=== PATIENT | male | born 1970 | race Caucasian/White ===

== ENCOUNTER 2019-07-16 19:23 | Observation (INO) ==
[2019-07-16] MEDS ORDERED: NS 1,000 ML IV ONE ×2 (19:54→23:10)
--- NOTE | 2019-07-16 20:00 | Diag Imaging Result Doc PS360 ---
EXAM: CHEST-1 VIEW HISTORY: SEPSIS PROTOCOL TECHNIQUE: Single view COMPARISON: None. FINDINGS: The lungs are well expanded. The heart is not enlarged. The vessels are not distended. There are no infiltrates. No effusion identified. IMPRESSION: No pneumonia. Electronically signed by Jose Simon 07/16/2019 7:57 PM
[2019-07-16 20:15] LABS: BASO# 0.04 X1000 (0.0-0.2); BASO% 0.2 % (0.0-0.8); EOS% 1.1 % (0.0-10.0); HEMATOCRIT 42.6 % (42.0-52.0); HEMOGLOBIN 14.6 g/dL (14.0-18.0); IMM GRAN# 0.08 X1000 (0.0-0.04); IMM GRAN% 0.4 % (0.0-0.5); LYMPH# 1.78 X1000 (1.2-3.4); LYMPH% 9.8 % (20.5-51.1); MCH 30.2 PG (27-31); MCHC 34.3 g/dL (33-37); MCV 88.2 FL (81-99); MONO# 1.73 X1000 (0.11-0.59); MONO% 9.5 % (1.7-9.3); MPV 9.6 FL (7.4-10.4); NEUT# 14.36 X1000 (1.4-6.5); PLT 308 X1000 (130-400); RBC 4.83 XMIL (4.7-6.1); RDW 12.2 % (11.5-14.5); WBC 18.19 X1000 (4.8-10.8)
[2019-07-16 20:40] LABS: AGAP 15; ALBUMIN 4.3 g/dL (3.5-5.0); ALKALINE PHOSPHATASE 112 U/L (32-122); BUN 9 mg/dL (8-22); CALCIUM 9.6 mg/dL (8.8-10.2); CHLORIDE 91 mmol/L (98-107); CK PROFILE 117 U/L (24-204); COSMO 275; CREATININE 0.7 mg/dL (0.7-1.2); ESTIMATED GFR > 60; GLUCOSE 384 mg/dL (70-104); GOT 22 U/L (10-34); GPT 57 U/L (10-44); POTASSIUM 4.5 mmol/L (3.5-5.1); SODIUM 130 mmol/L (136-145); TCO2 24 mmol/L (25-35); TOTAL PROTEIN 7.2 g/dL (6.3-8.3)
[2019-07-16 20:48] LABS: INR 1.03; PTT 29.5 Seconds (22.3-41.8)
[2019-07-16 21:12] LABS: URINE SOURCE CLEAN CATCH
[2019-07-16 21:45] LABS: BILIRUBIN URINE NEGATIVE (NEGATIVE); BLOOD URINE NEGATIVE (NEGATIVE); COLOR YELLOW; GLUCOSE URINE >1000 mg/dL (NEGATIVE); KETONE URINE 20 mg/dL (NEGATIVE); LEUKOCYTES URINE NEGATIVE (NEGATIVE); NITRITE URINE NEGATIVE (NEGATIVE); PROTEIN URINE 30 mg/dL (NEGATIVE); SP GRAVITY URINE 1.047; TURBIDITY URINE CLEAR (CLEAR); UROBILINOGEN URINE NORMAL (NORMAL)
[2019-07-16 21:47] LABS: UR EPITHELIAL CELLS <10 /HPF (<10); URINE BACTERIA NEGATIVE /HPF; URINE RBC <10 /HPF (<10); URINE WBC <10 /HPF (<10)
[2019-07-16] MEDS ORDERED: HUMALOG SUBQ ONE (22:00)
[2019-07-16] MEDS ORDERED: ZOSYN 3.375 GM in NS 50 ML IV ONE (22:04)
--- NOTE | 2019-07-16 22:04 | Diag Imaging Result Doc PS360 ---
EXAM: CT ABD/PELVIS W/IV CONT ONLY HISTORY: pain, distentio, elevated wbc TECHNIQUE: CT abdomen and pelvis with intravenous contrast. COMPARISON: None. FINDINGS: There is marked fatty infiltration of the liver. Normal spleen and adrenal glands. No calcified gallstones or adjacent inflammation. There is inflammation about the head of the pancreas. No pancreatic pseudocyst or pancreatic calcifications. Normal kidneys. No hydronephrosis. No aortic aneurysm. No bowel obstruction. There are scattered colonic diverticula. There is stool throughout the colon. No abscess. The urinary bladder is moderately distended and appears normal. Normal prostate. IMPRESSION: 1.Findings likely represent acute pancreatitis. Clinical and laboratory evaluation needed. 2.Prominent fatty infiltration of the liver 3.Constipation 4.Colonic diverticulosis This exam was performed using automated exposure control, adjustment of mA or kV according to patient size, and/or use of iterative reconstruction technique. Electronically signed by Jose Simon 07/16/2019 10:02 PM
[2019-07-16] MEDS ORDERED: HUMALOG (PARKWAY) ONE ×2 (22:05→23:22)
[2019-07-16 22:13] LABS: BE 1.1 mmoll (-2.0-2.0); BLOOD TYPE VENOUS; HCO3-(ACT) 25.7 mmoll (22-27); PCO2(98.6) 37 mmHg (40-60); PO2(98.6) 59 mmHg (30-55); SAMPLE BLOOD; SAO2 96.4 % (40.0-85.0); pH(98.6) 7.44 (7.32-7.43)
[2019-07-16 22:56] LABS: AMYLASE 57 U/L (20-200); LIPASE 155 U/L (13-60)
[2019-07-16] MEDS ORDERED: MORPHINE IV PRN (23:10)
[2019-07-16] MEDS ORDERED: ZOFRAN IV PRN (23:10)
--- NOTE | 2019-07-16 23:10 | PROVIDER DOCUMENTATION ---
This chart was entered by Carmen Guillen Scribe, acting as scribe for Aliya Betancourt CRNP. HPI-General Adult - General Chief Complaint: SEPSIS ALERT - P Stated Complaint: BLOOD SUGAR 400 Time Seen by Provider: 07/16/19 19:48 Source: patient Allergies/Adverse Reactions: Patient Allergies Allergy/AdvReac Type Severity Reaction Status Date / Time No Known Allergies Allergy Verified 07/16/19 21:02 Home Medications: Home Medication List Medication Instructions Recorded Confirmed Last Taken Type Metoprolol Succinate E.r. [Toprol 100 mg PO QPM 06/10/13 07/16/19 07/15/19 21:00 History Xl] [place]-3S/Dha/Epa/Fish Oil [Fish 1 each PO BID 06/10/13 07/16/19 07/16/19 09:30 History Oil 1,200 mg Softgel] PRAVAstatin [Pravachol] 40 mg PO QAM 06/10/13 07/16/19 07/16/19 09:30 History Lisinopril 20 mg PO BID 07/16/19 07/16/19 07/16/19 09:30 History - History of Present Illness -Gen Adult Nature of Presenting Problems: pt is a 49 yr old male presenting with 2 day complaint of abdominal distension and nausea, pt was seen by PCP today for same, pt had negative Xray and ultrasound today. pt reports this evening PCP called and told [place] [id number] and BGL was over 400. pt hx of T2D Location of Pain/Injury: reports: abdomen Pain Radiation: reports: no radiation Severity: reports: moderate Onset/Duration: reports: 2 days ago Timing: reports: still present Context/Activities at Onset: reports: light activity Modifying Factors: improves with: nothing Associated Symptoms: reports: constipation, nausea. denies: chest pain, diarr hea, fever/chills, shortness of breath, vomiting, weakness Similar Symptoms Previously?: Yes Recently seen or treated by another doctor?: Yes - Diabetes Related Context Context: reports: high blood sugar Review of Systems - Adult - REVIEW OF SYSTEMS - ADULT Constitutional: denies: chills, fever Eyes: reports: no symptoms reported Ears, Nose, Mouth & Throat: reports: no symptoms reported Cardiovascular: denies: chest pain, palpitations, syncope Respiratory: denies: cough, shortness of breath Gastrointestinal: reports: abdominal pain, nausea. denies: diarrhea, vomiting Genitourinary: denies: dysuria, frequency, flank pain Musculoskeletal: reports: no symptoms reported Integumentary: reports: no symptoms reported Neurological: denies: dizziness/vertigo, headache/migraines, syncope Psychiatric: reports: no symptoms reported Endocrine: reports: no symptoms reported Hematologic/Lymphatic: reports: no symptoms reported Allergic/Immunologic: reports: no symptoms reported All Other Systems: Reviewed and Negative Past History - Adult - PAST MEDICAL HISTORY-ADULT Review of Records: reports: Old Records Reviewed, Nursing Assessment Review, Medications Reviewed, Social history reviewed & non-contributory. Major Childhood Illnesses: reports: denies history Cardiovascular: reports: denies history Respiratory: reports: denies history Gastrointestinal: reports: denies history Obstetrical/Gynecological: reports: denies history Genitourinary: reports: denies history Musculoskeletal: reports: denies history Neurological: reports: denies history Endocrine/Immune: reports: denies history Other Conditions: reports: denies history - IMMUNIZATION STATUS Childhood Immunizations: See Nurse Assessment Flu Vaccine: See Nurse Assessment - FAMILY HISTORY Family History: reviewed, not pertinent - SOCIAL HISTORY Smoking: quit greater than 1 year Substance Use: alcohol Living Situation: family Physical Exam-General - PHYSICAL EXAM-ADULT Initial Vital Signs Reviewed: Yes - CONSTITUTIONAL General Appearance: alert, no apparent distress, obese - EYES Eyes: PERRL/EOMI - HEAD, EARS, NOSE, MOUTH & THROAT HENMT: normocephalic/atraumatic, moist mucous membranes, normal ENT inspection - NECK Neck: non-tender, full range of motion, supple, normal inspection - RESPIRATORY Respiratory: chest non-tender, lungs clear, normal breath sounds, no respiratory distress, no accessory muscle use - CARDIOVASCULAR Cardiovascular: normal peripheral pulses, tachycardia - GASTROINTESTINAL (ABDOMEN) Abdominal Exam: normal bowel sounds, no organomegaly, no pulsatile mass, distended, tenderness (EPIGASTRIC). negative: abdominal bruit, abnormal bowel sounds - LYMPHATIC Lymphatic: no adenopathy - MUSCULOSKELETAL Back Exam: normal inspection, no CVA tenderness, no vertebral tenderness Extremity: normal range of motion, non-tender, normal gait, normal inspection Peripheral Pulses: radial (R): 2+, radial (L): 2+ - SKIN Integumentary: normal color, normal turgor, warm/dry - NEUROLOGIC Neurologic: grossly normal, no motor/sensory deficits - PSYCHIATRIC Psych/Mental Status: normal mood/affect, normal thought content, normal thought process, oriented x 3 Progress - PLAN OF CARE/RESULTS Progress/Plan/Lab Results: Vital Signs - 8 hr 07/16/19 19:25 Temperature 98.5 F Pulse Rate 122 H Respiratory Rate 18 Blood Pressure 163/83 O2 Sat by Pulse Oximetry 95 Laboratory Results - last 24 hr 07/16/19 19:52 POC Glucose 324 H Orders Category Date Time Status Cardiac Monitoring DIRECTED Care 07/16/19 19:32 Active IV Insertion ORDERED Care 07/16/19 19:32 Active Notify MD of + Sepsis Screen NOW Care 07/16/19 19:32 Active Notify Physician As Ordered Care 07/16/19 19:32 Active CHEST-1 VIEW [RAD] Stat Exams 07/16/19 19:[address] ABD/PELVIS W/IV CONT ONLY [CT] Stat Exams 07/16/19 19:54 Ordered BLOOD CULTURE [BLDCUL] Stat Lab 07/16/19 19:32 Uncollected CBC WITH DIFF [HEME] Stat Lab 07/16/19 19:32 Uncollected CK PROFILE [SP CHEM] Stat Lab 07/16/19 19:32 Uncollected COMPREHENSIVE METABOLIC PANEL [CHEM] Stat Lab 07/16/19 19:32 Uncollected LACTATE, PLASMA [CHEM] Q3H Lab 07/16/19 19:45 Uncollected LACTATE, PLASMA [CHEM] Q3H Lab 07/16/19 22:45 Uncollected LACTATE, PLASMA [CHEM] Q3H Lab 07/17/19 01:45 Uncollected MAGNESIUM [CHEM] Stat Lab 07/16/19 19:32 Uncollected PROTIME WITH INR [COAG] Stat Lab 07/16/19 19:32 Uncollected PTT [COAG] Stat Lab 07/16/19 19:32 Uncollected TROPONIN T HIGH SENSITIVITY Stat Lab 07/16/19 19:32 Uncollected URINALYSIS W/POSS RFLX CULT [URINALYSIS] Stat Lab 07/16/19 19:32 Uncollected 0.9% Sodium Chloride Inj [Ns] 1,000 ml Med 07/16/19 19:54 Active IV 999 mls/hr Oxygen Device Stat Oth 07/16/19 19:32 Active Result Diagrams: 07/16/19 20:01 07/16/19 20:01 - XRAY 1 XRAY Study: Chest Impression: See EMR Report ( EXAM: CHEST-1 VIEW HISTORY: SEPSIS PROTOCOL TECHNIQUE: Single view COMPARISON: None. FINDINGS: The lungs are well expanded. The heart is not enlarged. The vessels are not distended. There are no infiltrates. No effusion identified. IMPRESSION: No pneumonia. Electronically signed by Jose Simon 07/16/2019 7:57 PM 07/16/191956 Interpreting Physician: Jose Simon MD Dictated Date/Time: 07/16/191956 cc: Rafat Bazan MD; Anila Roche) - CONSULTS/PCP/HOSPITALIST Notification #1 *Consult/PCP/Hospitalist*: DR. GUILLEN Time Discussed: 23:01 Consult Disposition: Admit Departure - Departure Date of Disposition Decision: 07/16/19 Time of Disposition Decision: 23:01 DIAGNOSIS: Acute pancreatitis, Constipation, Leukocytosis, Newly diagnosed diabetes Disposition: HOME 01 Certified Medical Emergency: Emergent Condition: Stable Referrals and Follow-Ups: Anila Roche CRNP [Primary Care Provider] - - Critical Care Note This patient required my direct & personal management of CC.: No Attestation - Physician/ ROGE Attestation Patient care was provided by Advanced Practice Provider:: Yes Advanced Practice Provider:: Aliya Betancourt Advanced Practice Provider documentation review:: The Mid-level provider documentation, treatment plan and medical decision making was reviewed by the physician who agrees with all treatment and medical decision making by the [facility]. The physician spent face to face time with patient:: Yes Advanced Practice Provider documentation review:: Supervising physician onsite and consulted in the evaluation and care of this patient. The physician did have a face to face encounter with the patient. This chart was documented by the indicated scribe, (Carmen Guillen Scribe) and accurately reflects the services I performed and decisions made by me, Aliya Betancourt CRNP, as attested by the provider's signature.
[2019-07-16 23:22] LABS: UR AMPHETAMINES QUAL NONE DETECTED (NONE DETECT); UR BARBITUATES QUAL NONE DETECTED (NONE DETECT); UR BENZODIAZEPIN QUAL NONE DETECTED (NONE DETECT); UR CANNABINOIDS QUAL NONE DETECTED (NONE DETECT); UR COCAINE QUAL NONE DETECTED (NONE DETECT); UR METHADONE QUAL NONE DETECTED (NONE DETECT); UR METHAMPHETAMINE QUAL NONE DETECTED (NONE DETECT); UR OPIATES QUAL NONE DETECTED (NONE DETECT); UR OXYCODONE QUAL NONE DETECTED (NONE DETECT); UR PCP QUAL NONE DETECTED (NONE DETECT); UR PROPOXYPHENE QUAL NONE DETECTED (NONE DETECT); UR TCA QUAL NONE DETECTED (NONE DETECT)
[2019-07-17 00:08] LABS: HEMOGLOBIN A1C 10.5 % (4.8-6.0)
[2019-07-17] MEDS ORDERED: APRESOLINE PO ONE (04:33)
[2019-07-17] MEDS: TYLENOL PO PRN ×3 (06:29→21:53)
[2019-07-17] MEDS: HUMALOG (PARKWAY) SUBQ SCH ×4 (06:38→21:49)
[2019-07-17 07:42] LABS: BASO# 0.04 X1000 (0.0-0.2); BASO% 0.3 % (0.0-0.8); EOS# 0.46 X1000 (0.0-0.7); HEMATOCRIT 41.8 % (42.0-52.0); IMM GRAN# 0.08 X1000 (0.0-0.04); IMM GRAN% 0.5 % (0.0-0.5); LYMPH# 1.69 X1000 (1.2-3.4); MCH 29.9 PG (27-31); MCHC 33.5 g/dL (33-37); MCV 89.1 FL (81-99); MONO# 1.36 X1000 (0.11-0.59); MONO% 8.8 % (1.7-9.3); MPV 9.4 FL (7.4-10.4); NEUT# 11.77 X1000 (1.4-6.5); NEUT% 76.4 % (42.2-75.2); PLT 280 X1000 (130-400); RBC 4.69 XMIL (4.7-6.1); RDW 12.4 % (11.5-14.5)
[2019-07-17 08:10] LABS: AGAP 13; ALBUMIN 3.6 g/dL (3.5-5.0); ALKALINE PHOSPHATASE 104 U/L (32-122); BUN 11 mg/dL (8-22); CHLORIDE 96 mmol/L (98-107); COSMO 275; CREATININE 0.7 mg/dL (0.7-1.2); ESTIMATED GFR > 60; GLUCOSE 261 mg/dL (70-104); GOT 25 U/L (10-34); GPT 43 U/L (10-44); POTASSIUM 4.6 mmol/L (3.5-5.1); SODIUM 133 mmol/L (136-145); TCO2 23 mmol/L (25-35); TOTAL PROTEIN 7.3 g/dL (6.3-8.3)
[2019-07-17] MEDS ORDERED: COLACE PO SCH (09:00)
[2019-07-17] MEDS ORDERED: APRESOLINE IV PRN (12:33)
[2019-07-17] MEDS: ZOSYN 3.375 GM in NS 50 ML IV SCH ×4 (12:53→23:11)
[2019-07-17] MEDS: PROTONIX IV SCH (12:54)
[2019-07-17] MEDS: SODIUM CHLORIDE 0.9% INJ SCH (12:54)
[2019-07-17] MEDS: NS 1,000 ML IV SCH ×2 (12:54→21:50)
[2019-07-17] MEDS: DULCOLAX PR SCH ×2 (12:55→21:50)
--- NOTE | 2019-07-17 17:40 | HISTORY AND PHYSICAL ---
CHIEF COMPLAINT: Abdominal distention and nausea x2 days. HISTORY OF PRESENT ILLNESS: This is a 49-year-old gentleman who presented to the emergency room on the instruction of his primary care physician after having x-rays and labs performed on an outpatient basis. [place] [address] and a blood sugar over 400 prompting his primary care to call him, and tell him to report to the emergency room. He stated that over the last 2 days he has had a crampy type abdominal pain that has been constant although it did increase with activity. He has had persistent nausea although he denied any vomiting. He stated he had not had a bowel movement in several days. CT of the abdomen and pelvis revealed acute pancreatitis with constipation. PAST MEDICAL HISTORY: Hypertension and hyperlipidemia. PAST SURGICAL HISTORY: Left knee surgery, tonsillectomy, and hernia repair. SOCIAL HISTORY: He smokes about a pack a day. He drinks about a half a case a week of alcohol. He denies any illicit drug use. ALLERGIES: No known drug allergies. FAMILY HISTORY: Positive for hypertension and coronary artery disease in grandparents. REVIEW OF SYSTEMS: Discussed with the patient with pertinent positives stated in the HPI. He denied any vomiting, any syncope, dizziness, chest pain, palpitations, any shortness of breath, cough, fever, chills, night sweats, recent weight loss or weight gain, any black or bloody vomitus or stools, diarrhea, hematuria or dysuria. PHYSICAL EXAMINATION: GENERAL: This is a 49-year-old gentleman who is sitting up in bed in no distress. VITAL SIGNS: Blood pressure 167/97, heart rate 70, respirations 18, and temperature is 98.2 degrees with room air saturations 96 to 98 percent. EYES: Pupils are equal, round, and react to light. EOMs are intact. Sclerae are anicteric. HEENT: Head is normocephalic, atraumatic. Mucous membranes are dry. NECK: Supple with trachea midline. CARDIOVASCULAR: Regular rate and rhythm. S1 and S2 are appreciated. Calves are nontender bilateral. PULMONARY: Breath sounds are clear with no increased work of breathing noted. Chest rises and falls symmetric with respiration. GASTROINTESTINAL: Abdomen is distended with generalized tenderness particularly in the epigastric area. Bowel sounds are heard in all 4 quadrants. GENITOURINARY: No CVA or suprapubic tenderness. NEUROLOGIC: He is alert and oriented x3. SKIN: Warm and dry. LABORATORY DATA: 1. WBC is 18 with hemoglobin 14.6, hematocrit 42.6, and platelets 308,000. Sodium is 130, potassium 4.5, BUN 9, and creatinine 0.7 with glucose ranging from 270 to 380. Hemoglobin A1c is 10.5. Lipase is 155 with amylase of 57. Urine drug screen reveals none detected. Acetone is negative. Urinalysis reveals glucose greater than 1000 with 20 ketones, otherwise negative. Blood cultures are pending. 2. Chest x-ray reveals no pneumonia. Lungs are well expanded. Heart is not enlarged. Vessels are not distended. There are no infiltrates. 3. CT of the abdomen and pelvis with IV contrast reveals findings likely represent acute pancreatitis, prominent fatty infiltration of the liver, constipation, and colonic diverticulosis. ASSESSMENT AND PLAN: 1. Acute pancreatitis. 2. Constipation. 3. Leukocytosis secondary to above. 4. New diagnosis of diabetes mellitus. 5. Hypertension. 6. Hyperlipidemia. PLAN: The patient has been admitted to the medical-surgical floor. He will remain NPO. Check pattern blood glucose with sliding scale insulin. We will continue with IV hydration, giving morphine for pain, and Zofran for nausea. Continue with antibiotic coverage of Zosyn, and any further antibiotics will be culture driven. Use hydralazine p.r.n. for blood pressure control, and once he is able to tolerate oral medications, we can restart his lisinopril and Toprol. Repeat a CBC, CMP, and lipase in the morning. Give Dulcolax suppository b.i.d. x4 doses. For GI prophylaxis, we will use Protonix. We will consult dietary for diabetes education. Further treatments pending hospital course. The patient was seen and plan was discussed with Dr. Carreon. Dictated by BERLIN Riojas for Jakob Carreon MD cc: BERLIN Riojas MD
--- NOTE | 2019-07-18 03:00 | HISTORY AND PHYSICAL ---
ADDENDUM: Patient seen and examined by myself. Full note dictated and discussed with nurse practitioner. Patient presented to the hospital with elevated blood sugars, epigastric pain and nausea. On exam, patient has an acute pancreatitis as well as leukocytosis. Blood pressures are elevated. We are going to admit to the hospital, place on sliding scale insulin, keep NPO for now due to pancreatitis and we will follow. cc: Jakob Carreon MD
[2019-07-18] MEDS: ZOSYN 3.375 GM in NS 50 ML IV SCH ×2 (05:19→12:37)
[2019-07-18 06:07] LABS: HEMATOCRIT 38.7 % (42.0-52.0); HEMOGLOBIN 13.1 g/dL (14.0-18.0); MCH 30.5 PG (27-31); MCHC 33.9 g/dL (33-37); MPV 9.6 FL (7.4-10.4); RBC 4.3 XMIL (4.7-6.1); WBC 13.31 X1000 (4.8-10.8)
[2019-07-18 06:15] LABS: AGAP 11; ALBUMIN 3.6 g/dL (3.5-5.0); ALKALINE PHOSPHATASE 93 U/L (32-122); BUN 9 mg/dL (8-22); CALCIUM 9.1 mg/dL (8.8-10.2); CHLORIDE 98 mmol/L (98-107); COSMO 276; CREATININE 0.8 mg/dL (0.7-1.2); ESTIMATED GFR > 60; GLUCOSE 228 mg/dL (70-104); GOT 17 U/L (10-34); GPT 34 U/L (10-44); LIPASE 130 U/L (13-60); POTASSIUM 4.1 mmol/L (3.5-5.1); SODIUM 135 mmol/L (136-145); TCO2 26 mmol/L (25-35); TOTAL PROTEIN 6.8 g/dL (6.3-8.3)
[2019-07-18] MEDS: HUMALOG (PARKWAY) SUBQ SCH ×2 (06:31→12:38)
[2019-07-18] MEDS: NS 1,000 ML IV SCH (07:02)
[2019-07-18] MEDS: SODIUM CHLORIDE 0.9% INJ SCH (08:38)
[2019-07-18] MEDS: PROTONIX IV SCH ×2 (08:38→12:38)
[2019-07-18] MEDS: DULCOLAX PR SCH (08:38)
[2019-07-18] MEDS: TYLENOL PO PRN (08:47)
[2019-07-18] MEDS ORDERED: PRAVACHOL PO SCH (09:00)
[2019-07-18] MEDS ORDERED: PRINIVIL PO SCH (09:00)
[2019-07-18] MEDS ORDERED: FISH OIL CONCENTRATE PO SCH (09:00)
[2019-07-18 13:56] VITALS: BP 159/102
[2019-07-18] MEDS ORDERED: TOPROL XL PO SCH (21:00)
--- NOTE | 2019-07-19 19:04 | DISCHARGE SUMMARY ---
ADMISSION DATE: 07/16/2019 DISCHARGE DATE: 07/18/2019 On discharge, the patient is awake, alert. He is in no current distress. He was admitted to the hospital with acute pancreatitis. He had an ultrasound a few days ago that did not demonstrate any gallbladder disease. CT was negative with the exception of acute pancreatitis. The patient does have new-onset diabetes. Discussed with him the importance of avoiding alcohol and all alcohol-containing products, as well as the importance of stopping smoking. We are going to discharge him home and follow up outpatient with primary care of choice regarding his diabetes. cc: Jakob Carreon MD
--- NOTE | 2019-07-20 19:30 | DISCHARGE SUMMARY ---
ADMISSION DATE: 07/16/2019 DISCHARGE DATE: 07/18/2019 DIAGNOSES: 1. Acute pancreatitis. 2. Constipation resolved. 3. Leukocytosis. 4. A new diagnosis of diabetes mellitus. 5. Hypertension. 6. Hyperlipidemia. DIAGNOSTICS: CT of the abdomen and pelvis revealed findings likely represent acute pancreatitis, prominent fatty infiltration of the liver, constipation and diverticulosis. Blood cultures x2 revealed no growth after 48 hours. Mr. Lang presented to the emergency room complaining of abdominal distention and nausea for 2 days. He was found to have lipase of 155 and with acute pancreatitis on CT. He was initially kept NPO, given IV hydration with IV pain and nausea medication. Diet was advanced to a diabetic diet. He ate 100% without any recurring abdominal pain, nausea, vomiting. He was initially given antibiotic coverage of Zosyn. We did give Dulcolax suppositories. He did have bowel movements. Blood sugars were in the 260 to 380 range. He did have a hemoglobin A1c of 10.5. Thankfully today he does not have any abdominal pain. He has tolerated solid food with no recurring symptoms and he is ready for discharge. DISCHARGE PHYSICAL EXAM: Vital Signs: Blood pressure is 146/96 with a heart rate of 67, respirations are 18, temperature is 98.1 degrees oral with room air saturations 99%. Cardiovascular: Regular rate and rhythm. S1 and S2 appreciated. Pulmonary: Breath sounds are clear. No increased work of breathing noted. Gastrointestinal: Abdomen soft, nontender, nondistended with bowel sounds in all 4 quadrants. Neurologic: He is alert and oriented x3. Skin is warm and dry next. DISCHARGE MEDICATIONS: 1. Lisinopril 20 mg p.o. b.i.d. 2. Pravachol 40 mg p.o. daily. 3. Metoprolol succinate 100 mg p.o. at bedtime. 4. Fish oil 1 p.o. b.i.d. 5. Omnicef 300 mg 1 p.o. b.i.d. for 5 days. FOLLOWUP: Anila Roche, his primary care provider. He needs to call in the morning to schedule an appointment to be seen in 1 to 2 weeks. He has been instructed to call to be seen sooner or return to the ER for any syncope, dizziness, chest pain, palpitations, recurring nausea, vomiting, diarrhea, constipation, temperature greater than 101, any black or bloody vomitus or stools or for any questions or concerns that he may have. He is being discharged home in stable condition with family members. 07-19-2019. I called the patient to obtain a pharmacy so I could call in Metformin. He was seen by his PCP this morning and started on medications as well as given a meter with instructions on FSBG. TIME SPENT: Greater than 30 minutes. Dictated by BERLIN Riojas for Jakob Carreon MD cc: BERLIN Riojas MD [facility]ITAL[facility]ral[facility]
== END 2019-07-18 15:21 | disposition home or self-care (01) ==
LOC: P.ED 19:23 → P.EDIPHOLD 19:23 → P.MEDSURG 19:23
PROVIDERS: ATTEND Family Medicine